=== PATIENT | female | born 1960 | race Asian ===

== ENCOUNTER 2017-10-24 14:12 | Inpatient (IN) | payer OTHER ==
[~2017-10-24 14:12] MED LIST: IOPAMIDOL (ISOVUE-300) 100 ML BTL ONE
--- NOTE | 2017-10-24 15:01 | EDPHY ---
H & P Stated Complaint: From CT, gallstones. Time Seen by Provider: 10/24/17 14:36 HPI/ROS: CHIEF COMPLAINT: Right upper quadrant pain HISTORY OF PRESENT ILLNESS: 56-year-old female presents with a 5 day history of right upper quadrant pain. Onset of right upper quadrant pain 5 days ago. The pain has been moderate to severe and waxes and wanes. Associated with 1 episode of vomiting. Tolerating oral fluids well today. Last oral intake was 1 hr ago. No food today. She was seen by Dr. Michele Warner in the office just prior to arrival. CT scan of the abdomen and pelvis reveals acute cholecystitis. REVIEW OF SYSTEMS: complete 10 point ROS negative except at noted in the HPI - Personal History Current Tetanus Diphtheria and Acellular Pertussis (TDAP): Yes - Medical/Surgical History Hx Asthma: No Hx Chronic Respiratory Disease: No Hx Diabetes: No Hx Cardiac Disease: No Hx Renal Disease: No Hx Cirrhosis: No Hx Alcoholism: No Hx HIV/AIDS: No Hx Splenectomy or Spleen Trauma: No Other PMH: Appendectomy. HTN. Hypothyroid. Gerd. - Social History Smoking Status: Never smoked - Physical Exam Exam: General Appearance: Alert, pleasant Eyes: Pupils equal and round, no conjunctival pallor or injection ENT, Mouth: Mucous membranes moist Neck: Normal inspection Respiratory: Lungs are clear to auscultation Cardiovascular: Regular rate and rhythm Gastrointestinal: Abdomen is soft, right upper quadrant and epigastric tenderness Neurological: A&O, nonfocal, normal gait Skin: Warm and dry, no rash Extremities: Normal inspection Psychiatric: Mood and affect normal Constitutional: Initial Vital Signs Temperature (C) 36.3 C 10/24/17 14:15 Heart Rate 90 10/24/17 14:15 Respiratory Rate 16 10/24/17 14:15 Blood Pressure 137/102 H 10/24/17 14:15 O2 Sat (%) 96 10/24/17 14:15 O2 Delivery Mode Room Air Allergies/Adverse Reactions: No Known Allergies Allergy (Unverified 10/24/17 16:54) Home Medications: Medication Instructions Recorded Atenolol [Tenormin 100 mg (*)] 100 mg PO DAILY 10/24/17 Gemfibrozil [Lopid 600 MG (*)] 600 mg PO BIDAC 10/24/17 Levothyroxine [Synthroid 88 mcg 88 mcg PO DAILY06 10/24/17 (*)] Omeprazole 20 mg PO DAILY 10/24/17 amLODIPine BESYLATE [Amlodipine 5 mg PO DAILY 10/24/17 Besylate] Hydrocodone/APAP 5/325 [[place] 1 - 2 tab PO Q4 PRN #20 tab 10/25/17 5/325 (*)] Ibuprofen [Motrin (*)] 600 mg PO Q6H #30 tab 10/25/17 Medical Decision Making - Diagnostics Imaging Results: Abdomen CT 10/24/17 18:00 Impression: 1. Acute calculus cholecystitis. 2. No CT evidence of appendicitis, abscess or bowel obstruction. Findings were communicated by telephone with Dr. TONY RUSSO at 10/24/2017 13:56 ED Course/Re-evaluation: This patient presents with a 5 day history of persistent right upper quadrant pain and CT consistent with acute cholecystitis. Does not meet SIRS criteria. Levaquin and Flagyl IV given. Dr. Jackie Man was consulted and saw the patient in the emergency department. Plan for cholecystectomy later today. Differential Diagnosis: Differential diagnosis includes though it is not limited to appendicitis, cholecystitis, diverticulitis, pyelonephritis, bowel perforation, small bowel obstruction. - Data Points Laboratory Results: Laboratory Results 10/24/17 14:45 10/24/17 14:45 Medications Given: Hydrocodone Bitart/Acetaminophen ([place] 5/325) 1 - 2 tab PO Q4 PRN PRN Reason: Pain, Moderate Able to Take PO Stop: 11/03/17 16:34 Last Admin: 10/24/17 23:57 Dose: 1 tab Amlodipine Besylate (Norvasc) 5 mg PO DAILY KARMEN Stop: 04/23/18 08:59 Last Admin: 10/25/17 10:22 Dose: 5 mg Atenolol (Tenormin) 100 mg PO DAILY KARMEN Stop: 04/23/18 08:59 Last Admin: 10/25/17 10:06 Dose: 100 mg Gemfibrozil (Lopid) 600 mg PO BIDAC KARMEN Stop: 04/23/18 07:29 Last Admin: 10/25/17 10:07 Dose: 600 mg Levofloxacin/Dextrose (Levaquin 750 Mg (Premix)) 150 mls @ 100 mls/hr IV DAILY KARMEN PRN Reason: Protocol Stop: 11/24/17 08:59 Last Admin: 10/25/17 10:07 Dose: 150 mls Metronidazole/Sodium Chloride (Flagyl 500 Mg (Premix)) 100 mls @ 100 mls/hr IV Q8HRS [facility] PRN Reason: Protocol Stop: 11/23/17 21:59 Last Admin: 10/25/17 05:22 Dose: 100 mls Ketorolac Tromethamine (Toradol) 15 mg IVP Q6HRS [facility] Stop: 10/30/17 08:44 Last Admin: 10/25/17 10:23 Dose: 15 mg Levothyroxine Sodium (Synthroid) 88 mcg PO DAILY06 [facility] Stop: 04/23/18 05:59 Last Admin: 10/25/17 05:22 Dose: 88 mcg Ondansetron HCl (Zofran) 4 mg IVP Q4 PRN PRN Reason: Nausea/Vomiting, Use 1st Stop: 04/22/18 20:13 Last Admin: 10/25/17 12:02 Dose: 4 mg Oxycodone/Acetaminophen (Percocet 5/325) 1 - 2 tab PO Q4 PRN PRN Reason: Pain, Severe Able to Take PO Stop: 11/03/17 20:13 Last Admin: 10/25/17 07:19 Dose: 2 tab Pantoprazole Sodium (Protonix) 40 mg PO DAILY [facility] Stop: 04/23/18 08:59 Last Admin: 10/25/17 10:07 Dose: 40 mg Discontinued Medications Bupivacaine HCl (Sensorcaine 0.5% Vial) Confirm Administered Dose 30 ml .ROUTE .STK-MED ONE Stop: 10/24/17 18:09 Last Admin: 10/24/17 19:57 Dose: 26 ml Cefazolin Sodium (Ancef Syringe) Confirm Administered Dose 1 gm .ROUTE .STK-MED ONE Stop: 10/24/17 18:16 Last Admin: 10/24/17 19:15 Dose: 1 gm Fentanyl (Sublimaze) 25 - 100 mcg IVP Q5M PRN PRN Reason: PACU, IMMEDIATE Pain control Stop: 10/24/17 19:22 Last Admin: 10/24/17 20:42 Dose: 50 mcg Heparin Sodium (Porcine) (Heparin Sodium) Confirm Administered Dose 2,000 unit .ROUTE .STK-MED ONE Stop: 10/24/17 18:10 Last Admin: 10/24/17 19:15 Dose: 2,000 unit Levofloxacin/Dextrose (Levaquin 750 Mg (Premix)) 150 mls @ 100 mls/hr IV EDNOW ONE PRN Reason: Protocol Stop: 10/24/17 16:34 Last Admin: 10/24/17 15:20 Dose: 150 mls Metronidazole/Sodium Chloride (Flagyl 500 Mg (Premix)) 100 mls @ 100 mls/hr IV EDNOW ONE PRN Reason: Protocol Stop: 10/24/17 16:05 Last Admin: 10/24/17 15:21 Dose: 100 mls Potassium Chloride/Dextrose/Sod Cl (D5w 1/2 Ns W/ 20 Kcl/L) 1,000 mls @ 100 mls /hr IV CONT KARMEN Stop: 04/22/18 20:14 Last Admin: 10/24/17 22:06 Dose: 1,000 mls Iothalamate Meglumine (Conray) Confirm Administered Dose 50 ml IV .STK-MED ONE Stop: 10/24/17 18:10 Last Admin: 10/24/17 19:56 Dose: Not Given Midazolam HCl (Versed) 2 mg IVP ONCALL ONE Stop: 10/24/17 17:13 Last Admin: 10/24/17 18:15 Dose: 2 mg Departure - Departure Disposition: [facility] Acute Clinical Impression: Cholecystitis, acute Condition: Good
[2017-10-24] MEDS ORDERED: ONDANSETRON 4 MG/2 ML VIAL IVP PRN ×3 (16:35→20:14)
[2017-10-24] MEDS ORDERED: HYDROCODONE/APAP 5/325 TAB PO PRN ×2 (16:35→18:22)
[2017-10-24] MEDS ORDERED: HYDROmorphone HCL/NS 0.5 MG/ML SYR IVP PRN ×2 (16:35→20:14)
[2017-10-24] MEDS ORDERED: ACETAMINOPHEN 325 MG TAB PO PRN (16:35)
--- NOTE | 2017-10-24 16:42 | PDGENHP ---
History and Physical History and Physical: Mohinder is a 56 Y female who has had five days of RUQ abdominal pain associated with nausea and vomiting. She reports being afebrile. CT scan in the ED today revealed calculus cholecystitis. LFT's were mildly elevated. Her first language is Laotian. She does speak some Luxembourgish. She is here with her daughter and politely declines an official site supervisor. PMH: Reynaud's, hypothyroid, HBP PSH: appendectomy Meds: atenolol, amlodipine, levothyroxine, gemfibrozil, omeprazole Allergies: NKDA Social: no smoking. here with daughter. speaks laotian and some colombian. Family hx: noncontributary ROS: neg aside from HPI Gen: alert, nad heent: ncat, no jaundice pulm: ctab cor: rrr abd: soft, +RUQ tenderness ext: wwp CT images reviewed. A/P: Cholelithiasis, acute cholecystitis. Lap pk. Risks and options discussed. All documented in consent. Ppx abx ordered. Dr. Man will also evaluate patient.
[2017-10-24] MEDS ORDERED: NS W/ 20 KCl/L 1,000 ML IV SCH (16:45)
[2017-10-24] MEDS ORDERED: MIDAZOLAM 2 MG/2 ML VIAL IVP ONE (17:12)
--- NOTE | 2017-10-24 17:12 | PDANEPAE ---
ANE History of Present Illness Laparoscopic cholecystectomy ANE Past Medical History - Cardiovascular History Hx Hypertension: Yes - Pulmonary History Hx Oxygen in Use at Home: No Hx Sleep Apnea: No - Endocrine History Hx Diabetes: No Hypothyroid: Yes - Other Health History Other Health History: raynauds ANE Review of Systems Review of systems is: negative Review of Systems: - Exercise capacity METS (RN): 4 METS ANE Patient History - Allergies Allergies/Adverse Reactions: No Known Allergies Allergy (Unverified 10/24/17 16:54) - Home Medications Home medications: home medication list seen and reviewed Home Medications: Atenolol [Tenormin 100 mg (*)] 100 mg PO DAILY 10/24/17 [Last Taken 10/23/17] Gemfibrozil [Lopid 600 MG (*)] 600 mg PO BIDAC 10/24/17 [Last Taken 10/23/17] Levothyroxine [Synthroid 88 mcg (*)] 88 mcg PO DAILY06 10/24/17 [Last Taken 12/05] Omeprazole 20 mg PO DAILY 10/24/17 [Last Taken 10/23/17] amLODIPine BESYLATE [Amlodipine Besylate] 5 mg PO DAILY 10/24/17 [Last Taken 12/05] - NPO status NPO Since - Liquids (Date): 10/24/17 NPO Since - Liquids (Time): 13:30 NPO Since - Solids (Date): 10/23/17 NPO Since - Solids (Time): 21:00 - Anes Hx Anes Hx: no prior problems - Smoking Hx Smoking Status: Never smoked - Family Anes Hx Family Anes Hx: none ANE Labs/Vital Signs - Labs Result Diagrams: 10/24/17 14:45 10/24/17 14:45 - Vital Signs Blood Pressure: 133/93 Heart Rate: 83 Respiratory Rate: 16 O2 Sat (%): 96 Height: 157.48 cm Weight: 53.977 kg ANE Physical Exam - Airway Neck exam: FROM Mallampati Score: Class 2 Mouth exam: normal dental/mouth exam - Pulmonary Pulmonary: no respiratory distress - Cardiovascular Cardiovascular: regular rate and rhythym - ASA Status ASA Status: II ANE Anesthesia Plan Anesthesia Plan: general endotracheal anesthesia
[2017-10-24 18:02] LABS: PLATELET COUNT 223 10^3/uL (150-400)
[2017-10-24] MEDS ORDERED: PROPOFOL 200 MG/20 ML VIAL ONE (18:06)
[2017-10-24] MEDS ORDERED: ONDANSETRON 4 MG/2 ML VIAL ONE (18:06)
[2017-10-24] MEDS ORDERED: fentaNYL 100 MCG/2 ML INJ ONE ×3 (18:06→20:28)
[2017-10-24] MEDS ORDERED: LIDOCAINE 2% 100 MG/5 ML SYR ONE (18:06)
[2017-10-24] MEDS ORDERED: DEXAMETHASONE 4 MG/ML VIAL ONE (18:06)
[2017-10-24] MEDS ORDERED: ROCURONIUM 50 MG/5 ML VIAL ONE (18:06)
[2017-10-24] MEDS ORDERED: BUPIVACAINE 0.5% 30 ML SDV ONE (18:08)
[2017-10-24] MEDS ORDERED: IOTHALAMATE MEG (CONRAY) 50 ML VIAL IV ONE (18:09)
[2017-10-24] MEDS ORDERED: HEPARIN 1000 UNIT/1 ML MDV ONE (18:09)
[2017-10-24] MEDS ORDERED: ceFAZolin 1 GM/5 ML SYR ONE (18:15)
[2017-10-24] MEDS ORDERED: ACETAMINOPHEN 500 MG TAB PO PRN (18:22)
[2017-10-24] MEDS ORDERED: DEXAMETHASONE 4 MG/ML VIAL IVP PRN (18:22)
[2017-10-24] MEDS ORDERED: PROMETHAZINE HCL 25 MG/ML INJ IVP PRN (18:22)
[2017-10-24] MEDS ORDERED: NALOXONE HCL 0.4 MG/ML INJ IVP PRN (18:22)
[2017-10-24] MEDS ORDERED: oxyCODONE IR 5 MG TAB PO PRN (18:22)
[2017-10-24] MEDS ORDERED: HYDROmorphONE/DILAUDID 2 MG/ML INJ IVP PRN (18:22)
[2017-10-24] MEDS ORDERED: MEPERIDINE 25 MG/0.5 ML AMP IVP PRN (18:22)
--- NOTE | 2017-10-24 18:22 | SOAPPROG ---
REYES Progress Note Assessment/Plan: Assessment: 56-YEAR-OLD FEMALE WITH TENDER TO MARKEDLY DISTENDED GALLBLADDER AND ACUTE CHOLECYSTITIS WITH MULTIPLE STONES RISKS AND OPTIONS FULLY DISCUSSED AND SHE WISHED TO PROCEED WITH LAP CHOLY. WE HAVE DISCUSSED THE POSSIBLE RISK OF CONVERSION TO AN OPEN PROCEDURE BECAUSE OF THE 5 DAY HISTORY OF HER PROBLEMS VITAL SIGNS STABLE/AFEBRILE/MINIMAL LFT ABNORMALITIES Plan: LAP CHOLY 10/24/17 18:20 Objective: Vital Signs Temp Pulse Resp BP Pulse Ox 36.6 C 83 16 133/93 H 96 10/24/17 16:13 10/24/17 17:23 10/24/17 17:23 10/24/17 17:23 10/24/17 17:23 ICD10 Worksheet Patient Problems: Problems Problem Status Onset Acute cholecystitis due to biliary calculus Acute - ICD10 Problem Qualifiers (1) Acute cholecystitis due to biliary calculus
--- NOTE | 2017-10-24 18:36 | POSTANESTH ---
Post Anesthetic Evaluation Cardiovascular Status: Normal, Stable, Similar to Pre-Op Cond Respiratory Status: Normal, Stable, Similar to Pre-op Cond. Level of Consciousness/Mental Status: Can Participate in Eval, Mildly Sleepy, Arousable Pain Control: Adequate, Prn Tx Ordered Nausea/Vomiting Control: Adequate, Prn Tx Ordered Complications Possibly Related to Anesthesia: None Noted
[2017-10-24] MEDS ORDERED: SUGAMMADEX SODIUM 200 MG/2 ML VIAL IVP ONE (19:29)
--- NOTE | 2017-10-24 20:11 | POSTOPPROG ---
Post Op Note Date of Operation: 10/24/17 Surgeon: Brant Man Anesthesiologist: sarah Anesthesia: GET(General Endotracheal) Pre-op Diagnosis: acute cholecystitis Post-op Diagnosis: same Indication: pain Procedure: lap pk and wedge liver bx Findings: severe acute pk with hydrops Inf/Abcess present in the surg proc area at time of surgery?: Yes Depth: Organ Space EBL: 50-100 Complications: 0 Specimen(s): gallbladder and liver bx
[2017-10-24] MEDS ORDERED: D5W 1/2 NS W/ 20 KCl/L 1,000 ML IV SCH (20:15)
[2017-10-24] MEDS: fentaNYL 100 MCG/2 ML INJ IVP PRN ×2 (20:31→20:42)
[2017-10-25] MEDS: OXYCODONE/APAP 5/325 TAB PO PRN ×2 (02:26→07:19)
[2017-10-25] MEDS: LEVOTHYROXINE 88 MCG TAB PO SCH (05:22)
[2017-10-25 07:03] LABS: PLATELET COUNT 197 10^3/uL (150-400)
--- NOTE | 2017-10-25 08:32 | SOAPPROG ---
SOAP Progress Note Assessment/Plan: Assessment/Plan: 56 Y F s/p lap pk, POD#1. Cholelithiasis, cholecystitis. Advance diet. Continue pain control and routine post op care. Continue IV abx for acute cholecystitis. Dispo: likely in am. S: c/o pain. pain pill helping. tolerating clears. some burping. O: alert, nad, oob in chair no wob abd soft, +BS 10/25/17 08:30 Objective: Vital Signs Temp Pulse Resp BP Pulse Ox 36.7 C 79 16 121/81 H 99 10/25/17 05:25 10/25/17 05:25 10/25/17 05:25 10/25/17 05:25 10/25/17 05:25 Microbiology 10/24/17 19:24 Gram Stain - Final Gallbladder - Eswab Laboratory Results 10/25/17 05:30 10/25/17 05:30 10/24/17 10/25/17 10/26/17 05:59 05:59 05:59 Intake Total 2110 Output Total 375 Balance 1735 ICD10 Worksheet Patient Problems: Problems Problem Status Onset Acute cholecystitis due to biliary calculus Acute
--- NOTE | 2017-10-25 09:36 | PDMN ---
Medical Necessity Medical necessity: change to IP[id number]; requires continued IV abx and pain control; per order and progress note 10/25/17
[2017-10-25] MEDS: ATENOLOL 100 MG TAB PO SCH (10:06)
[2017-10-25] MEDS: GEMFIBROZIL 600 MG TAB PO SCH ×2 (10:07→18:00)
[2017-10-25] MEDS: PANTOPRAZOLE SODIUM 40 MG TAB PO SCH (10:07)
[2017-10-25] MEDS: amLODIPine BESYLATE 5 MG TAB PO SCH (10:22)
[2017-10-25] MEDS: KETOROLAC 15 MG/1 ML SDV IVP SCH ×3 (10:23→18:00)
[2017-10-25] MEDS ORDERED: PROMETHAZINE HCL 25 MG/ML INJ IVP PRN (13:59)
[2017-10-25] MEDS ORDERED: ZOLPIDEM TARTRATE 5 MG TAB PO PRN (20:26)
[2017-10-25] MEDS ORDERED: diphenhydrAMINE 25 MG CAP PO PRN (20:26)
[2017-10-26] MEDS: KETOROLAC 15 MG/1 ML SDV IVP SCH ×2 (00:02→05:46)
[2017-10-26] MEDS: LEVOTHYROXINE 88 MCG TAB PO SCH (05:46)
[2017-10-26] MEDS: GEMFIBROZIL 600 MG TAB PO SCH (08:09)
[2017-10-26 08:25] VITALS: BP 117/75
--- NOTE | 2017-10-26 09:29 | SOAPPROG ---
SOAP Progress Note Assessment/Plan: Assessment/Plan: 56 Y F s/p lap pk, POD#2. Cholelithiasis, cholecystitis. doing well. d.c to home. S: pain controlled. eating breakfast. nausea resolved. O: alert, nad abd soft, nt inc cdi 10/26/17 09:25 Objective: Vital Signs Temp Pulse Resp BP Pulse Ox 36.7 C 76 16 117/75 93 10/26/17 08:00 10/26/17 08:00 10/26/17 08:00 10/26/17 08:00 10/26/17 08:00 Microbiology 10/24/17 19:24 Gram Stain - Final Gallbladder - Eswab Laboratory Results 10/25/17 05:30 10/25/17 05:30 10/25/17 10/26/17 10/27/17 05:59 05:59 05:59 Intake Total 2110 Output Total 375 925 Balance 1735 -925 ICD10 Worksheet Patient Problems: Problems Problem Status Onset Acute cholecystitis due to biliary calculus Acute Cholecystitis, acute Acute
[2017-10-26] MEDS: ATENOLOL 100 MG TAB PO SCH (10:42)
[2017-10-26] MEDS: amLODIPine BESYLATE 5 MG TAB PO SCH (10:42)
[2017-10-26] MEDS: PANTOPRAZOLE SODIUM 40 MG TAB PO SCH (11:31)
== END 2017-10-26 10:15 | disposition home or self-care (01) | DRG 419 ==
LOC: OBSVTOIN 15:20 → INTOOBSV 15:20 → EDSTATUS 18:00 → FOB 21:55
PROVIDERS: ADMIT Surgery; ATTEND Surgery
DX: K80.00 Calculus of gallbladder with acute cholecystitis without obstruction (principal); I10 Essential (primary) hypertension; E03.9 Hypothyroidism, unspecified; K21.9 Gastro-esophageal reflux disease without esophagitis
CPT/HCPCS: 96365; G0378; J1100; J1885; J1956; J2001; J2250; J2405; J2704; J3010; Q9961; Q9967